=== PATIENT | male | born 1990 | race African-American/Black ===

== ENCOUNTER 2018-12-04 03:00 | Observation (INO) ==
[2018-12-04] MEDS ORDERED: ceFAZolin 1,000 MG VIAL IM ONE (03:06)
[2018-12-04] MEDS ORDERED: LIDOCAINE 1%/EPI INJ 20 ML VIAL ONE (03:06)
[2018-12-04] MEDS ORDERED: LIDOCAINE 1%/EPI INJ 20 ML VIAL MISC INJ STA (03:07)
[2018-12-04] MEDS ORDERED: DIPH/TET/ACEL PERT BOOSTER VACCINE 0.5 ML VIAL IM ONE (03:15)
[2018-12-04] MEDS ORDERED: CLINDAMYCIN INJ 900 MG in PREMIX 1 EACH IV STA (04:33)
[2018-12-04] MEDS ORDERED: GLUCAGON 1 MG VIAL IM PRN (05:20)
[2018-12-04] MEDS ORDERED: HYDROmorphone 2 MG/1 ML VIAL IV PRN (05:20)
[2018-12-04] MEDS ORDERED: ONDANSETRON 4 MG/2 ML VIAL IV PRN (05:20)
[2018-12-04] MEDS ORDERED: LACTATED RINGERS 1,000 ML IV SCH (05:20)
[2018-12-04] MEDS ORDERED: DEXAMETHASONE 4 MG/1 ML VIAL IV SCH (05:20)
[2018-12-04] MEDS ORDERED: DEXTROSE 50% 25 GM/50 ML SYRINGE IV PRN (05:20)
[2018-12-04 05:33] LABS: Basophils % 0.2 % (0.0-0.8); Eosinophils % 0.1 % (0.00-10.9); Hematocrit 42.7 VOL% (42.0-52.0); Hemoglobin 13.7 GM/DL (14.0-18.0); Immature Granulocytes % 0.5 %; Immature Granulocytes Absolute 0.06 #; Lymphocytes # 1.9 10*3/uL (1.4-4.0); Lymphocytes % 16.2 % (21.2-54.2); Mean Corpuscular HGB Conc 32.1 GM/DL (32-36); Mean Corpuscular Hemoglobin 27 PG (27-34); Mean Corpuscular Volume 83.1 FL (87-102); Mean Platelet Volume 10.7 FL (9.6-12.0); Monocytes # 0.7 10*3/uL (0.11-0.8); Monocytes % 5.5 % (1.7-12.7); Neutrophils # 9.2 10*3/uL (1.4-7.4); Neutrophils % 77.5 % (38.7-73.9); Platelet Count 201 T/CUMM (130-400); Red Blood Count 5.14 MC/CUMM (3.8-5.5); Red Cell Distribution Width 13.3 % (9.3-17.3); White Blood Count 11.9 T/CUMM (4-12)
[2018-12-04 05:49] LABS: Alanine Aminotransferase 27 U/L (16-61); Albumin 3.5 G/DL (3.4-5.0); Alkaline Phosphatase 95 U/L (45-117); Aspartate Amino Transferase 18 U/L (0-37); Bilirubin,Total < 0.39 MG/DL (0.2-1.0); Blood Urea Nitrogen 12 MG/DL (7-18); Calcium 8.6 MG/DL (8.5-10.1); Glucose 252 MG/DL (74-106); Osmolality,Calculated 283.7 MOS/KG (273-304); Potassium 4.7 MMOL/L (3.5-5.1); Sodium 138 MMOL/L (136-145); Total Protein 7.1 G/DL (6.4-8.3)
[2018-12-04 05:58] LABS: PT Patient Result 10.7 SECS
[2018-12-04] MEDS: INSULIN REGULAR 100 UNIT/ML SUBCUT SCH ×3 (06:40→18:27)
[2018-12-04] MEDS ORDERED: DEXAMETHASONE 10 MG/1 ML VIAL IV SCH ×3 (08:11→13:20)
[2018-12-04] MEDS: CLINDAMYCIN INJ 600 MG in PREMIX 1 EACH IV SCH ×2 (11:35→18:26)
[2018-12-04 16:31] VITALS: BP 128/76
[2018-12-04] MEDS ORDERED: INSULIN NPH/REGULAR 70/30 100 UNIT/ML SUBCUT SCH (17:00)
[2018-12-04] MEDS ORDERED: carBAMazepine 200 MG TABLET PO SCH (21:00)
[2018-12-04] MEDS ORDERED: metFORMIN 500 MG TABLET PO SCH (21:00)
== END 2018-12-04 18:45 ==
LOC: N.ED 03:00 → N.EDINP 04:45 → INTOOBSV 04:45 → N.3W 05:16
PROVIDERS: ADMIT Otolaryngology; ATTEND Otolaryngology